=== PATIENT | female | born 1960 | race Caucasian/White ===

== ENCOUNTER 2023-09-05 10:20 | Emergency (ER) | payer OTHER, SELFPAY ==
[2023-09-05 10:22] VITALS: BP 134/91
--- NOTE | 2023-09-05 11:13 | ED.GENMED ---
History of Present Illness
General
Chief Complaint: Fever
Source: patient
Exam Limitations: none
Time Seen by Provider: 09/05/23 11:11
Nursing documentation reviewed up to this point in time: agreed with
Travel History
Have you had any contact with someone who has COVID-19?: No
Do you have any symptoms of coronavirus? Fever > 100 degrees, chills, cough, shortness of breath, sore throat, loss of taste or smell, muscle aches, or headache?: No
History of Present Illness
History of Present Illness:
63-year-old female with no significant past medical history presents stating she was at urgent care yesterday and diagnosed with genital wart and genital herpes. She was given a prescription for an antiviral but has not gotten it yet. She states
she noted bumps spreading in her vaginal area 3 days ago. She is and states has always been monogamous. No know recollection of genital herpes in the past. [facility] personnel told her to watch for signs of meningitis. She's had headaches
off and on for few weeks 10/19 takes nothing for them as 'they're not that bad.' Two days ago noted her neck was 'sore.' She said she had a fever of 99-101 past 2 days. Is concerned for meningitis.
Past History
Past History
ED Past Medical History: None
ED Past Surgical History: None
Social History
Tobacco: Non-smoker
Alcohol: Occasional
Personal:
Living: with family
Employment: Employed
Review of Systems
Review of Systems
Allergies reviewed?: Yes
All Other Systems: ROS reviewed and negative except as documented in HPI and ROS
Constitutional: Reports fever (reports as noted in HPI, no fever now); Denies chills
EENT: Denies sore throat
Respiratory: Denies trouble breathing
Cardiac: Denies chest pain
ABD/GI: Denies abdominal pain, nausea, vomiting or diarrhea
: Reports other (bumps in vaginal area noted 4 days ago, no pain); Denies dysuria, flank pain, difficulty voiding, urgency, bleeding or discharge
Musculoskeletal: Reports neck pain (neck 'sore' No neck stiffness); Denies back pain
Skin: Reports no symptoms
Neurological: Reports headache ('mild'); Denies dizzy, weakness or numbness
Phy Exam
Physical Exam
Physical Exam:
GENERAL: No acute distress. A&Ox3.
CONSTITUTIONAL: Afebrile.
EYES: clear, conjunctivae normal
Neck: Supple
ENMT: moist mucus membranes, Pharynx nl
RESPIRATORY: Regular respirations, nonlabored, lungs clear.
CARDIOVASCULAR: Regular rate and rhythm, no murmurs, no rubs.
GI: Soft, nontender, normal BS
: several skin colored lesions of various sizes, none larger than 5 mm, over labia majora, few non tender 1-5 mm crater like lesions, no drainage
MUSCULOSKELETAL: Moves with ease. Well perfused.
SKIN: Warm, dry, pink
PSYCH: Normal mood and affect. Well kept, interactive and appropriate
NEUROLOGIC: Awake, alert and oriented. No focal neurological deficits
Course
Orders/Labs/Results
Orders:
Orders
09/05/23 11:35
Valacyclovir HCl [Valtrex] 1,000 mg PO NOW STA
09/05/23 12:02
Complete Blood Count/With Diff Urgent
Comprehensive Metabolic Panel Urgent
Abnormal Lab Results
09/05/23
12:02
[facility] 31.7 H pg
(27.0-31.0)
09/05/23 12:02
09/05/23 12:02
Vital Signs
Initial and Last Documented VS:
Initial Vital Signs
Temp Pulse Resp BP Pulse Ox
99.3 F 77 16 134/91 98
09/05/23 10:22 09/05/23 10:22 09/05/23 10:22 09/05/23 10:22 09/05/23 10:22
Last Documented Vital Signs
Temp Pulse Resp BP Pulse Ox
98.2 F 66 16 136/77 98
09/05/23 12:00 09/05/23 12:00 09/05/23 12:00 09/05/23 12:00 09/05/23 12:00
MDM/Problems Addressed
Differential Diagnosis Includes:
Genital warts, genital herpes
Anxiety r/t above symptoms
MDM/Problems Addressed:
63-year-old female with no significant past medical history presents stating she was at urgent care yesterday and diagnosed with genital wart and genital herpes. She was given a prescription for an antiviral but has not gotten it yet. She states
she noted bumps spreading in her vaginal area 3 days ago. She is and states has always been monogamous. No know recollection of genital herpes in the past. [facility] personnel told her to watch for signs of meningitis. She's had headaches
off and on for few weeks 10/19 takes nothing for them as 'they're not that bad.' Two days ago noted her neck was 'sore.' She said she had a fever of 99-101 past 2 days. Is concerned for meningitis.
Afebrile, NAD
09/05/2023 1249 PM
CBC normal
CMP normal
Patient reassured no signs of meningitis.
Referred to [facility]
Pt insurance covers Dr.s Marques and [facility], she will call for appointment
Given her information from up-to-date on 'patient education, genital warts and women, beyond the basics'
*Critical Care Note
Total Time (30-74mins, 75-104mins- exclusive of procedures): Not Applicable
ED Attending Note
-
Portions of this chart may have been created with voice recognition software.� Occasional wrong word or��sound alike� substitutions may have occurred due to the inherent limitations of voice recognition software.
Discharge Plan
Departure
Patient Disposition: Home (Routine Discharge)
Date of Disposition: 09/05/23
Time of Disposition: 12:50
Patient with high blood pressure during this ER visit?: No
Condition: Good
Discharge Problem:
Anxiety about health, Headache, Vaginal lesion
Instructions: Headache, Adult, Genital Herpes (DC)
Referrals:
Shital Smith, [Active] - Next open appointment
NONE,* [Family Provider] -
Activity Restrictions/Additional Instructions:
As we discussed, you have no signs of meningitis.
I'm not sure what the lesions around your vagina are. Continue the antiviral prescribed
I have provided you with information on Genital Warts and Herpes FYI
Call the [facility] doctors office and make next available appointment.
Interventions
Interventions:
*Risk Screen - Suicide Last Done: 09/05/23 12:02
*General Assessment Last Done: 09/05/23 12:02
*Neglect/Abuse Screening Last Done: 09/05/23 12:02
ED- Fall Risk Assessment Last Done: 09/05/23 12:03
*ED COVID-19 Vaccine History Last Done: 09/05/23 10:22
*Nursing Disposition Last Done: 09/05/23 13:07
ED- Neurological Assessment Last Done: 09/05/23 12:33
ED-Skin Assessment Last Done: 09/05/23 12:33
Discharge Date and Time
Discharge Date/Time: 09/05/23 13:09
[2023-09-05] MEDS: VALTREX 1000 MG PO (11:57)
[2023-09-05 12:00] VITALS: BP 136/77
[2023-09-05 12:15] LABS: % Basophils 1.3 % (0-2); % Eosinophils 3.1 % (0-6); % Immature Granulocytes 0.2 % (0-0.5); % Lymphocytes 36.8 % (20.5-51.1); % Neutrophils 51.6 % (42.2-75.2); Absolute Basophils 0.1 10^3/uL (0-0.2); Absolute Eosinophils 0.2 10^3/uL (0-0.7); Absolute Monocytes 0.4 10^3/uL (0.1-0.6); Absolute Neutrophils 2.8 10^3/uL (1.4-6.5); Hematocrit 38.8 % (37.0-47.0); Hemoglobin 13.7 g/dL (12.0-16.0); Mean Corp Hgb Conc. 35.3 g/dL (33.0-37.0); Mean Corpuscular Hgb 31.7 pg (27.0-31.0); Mean Corpuscular Volume 89.8 fL (81.0-99.0); Mean Platelet Volume 10.2 fL (7.4-10.4); Nucleated Red Blood Cells % 0 %; Platelet Count 251 10^3/uL (130-400); Red Blood Cell Count 4.32 10^6/uL (4.20-5.40); Red Cell Dist. Width 11.7 % (11.5-14.5); White Blood Cell Count 5.4 10^3/uL (4.8-10.8)
[2023-09-05 12:31] LABS: ALT (SGPT) 21 U/L (0-35); AST (SGOT) 29 U/L (14-36); Alkaline Phosphatase 67 U/L (38-126); Blood Urea Nitrogen 8 mg/dl (7-17); Calcium 9.5 mg/dl (8.4-10.2); Carbon Dioxide 29 mmol/L (22-30); Chloride 102 mmol/L (98-107); Glucose 98 mg/dl (70-99); Potassium 4.1 mmol/L (3.5-5.1); Sodium 137 mmol/L (135-145); Total Bilirubin 0.8 mg/dl (0.2-1.3); Total Protein 6.8 g/dl (6.3-8.2); eGFR > 60.00
== END 2023-09-05 13:09 | disposition home or self-care (01) ==
LOC: EMR 10:20
PROVIDERS: Registered Nurse; EMERGENCY PHYSICIAN Emergency Medicine
DX: R51.9 Headache, unspecified (principal); N89.8 Other specified noninflammatory disorders of vagina; F41.9 Anxiety disorder, unspecified
CPT/HCPCS: 99283; 80053; 85025